=== PATIENT | female | born 1975 | race Caucasian/White ===

== ENCOUNTER → 2016-05-14 | Outpatient (REF) | payer OTHER, SELFPAY | LOC: M LAB REF 20:03 | PROVIDERS: ATTEND Physician Assistant | DX: N39.0 Urinary tract infection, site not specified (principal) ==

== ENCOUNTER 2019-06-09 17:41 | Observation (INO) | payer OTHER ==
[~2019-06-09] VITALS: Ht 165.1 cm; Wt 73.0 kg
[2019-06-09] MEDS ORDERED: LABETALOL HCL 100 MG/20 ML VIAL IV STA ×3 (18:30→22:20)
[2019-06-09] MEDS ORDERED: LABETALOL HCL 100 MG/20 ML VIAL As Ordered ONE (18:31)
[2019-06-09 18:32] LABS: BASO # 0.1 10^3/uL (0.0-0.2); BASO % 0.5 % (0.0-1.0); EOS # 0.1 10^3/uL (0.0-0.5); EOS % 0.6 % (0.0-3.0); LYMPH # 1.8 10^3/uL (1.5-5.0); LYMPH % 14.2 % (24.0-44.0); MEAN CORPUSCULAR HGB CONC 33.3 g/dl (32.0-36.5); MONO # 0.6 10^3/uL (0.0-0.8); MONO % 4.9 % (0.0-5.0); NEUTROPHILS # 10.1 10^3/uL (1.5-8.5); NEUTROPHILS % 79.5 % (36.0-66.0); PLATELET COUNT, AUTOMATED 304 10^3/uL (150-450); RED BLOOD COUNT 5.17 10^6/uL (4.00-5.40); WHITE BLOOD COUNT 12.7 10^3/uL (4.0-10.0)
[2019-06-09 18:43] LABS: INR 1.02; PROTHROMBIN TIME 13.1 SECONDS (11.8-14.0)
[2019-06-09 18:44] LABS: PARTIAL THROMBOPLASTIN TIME 26.4 SECONDS (25.0-38.4)
[2019-06-09 19:03] LABS: HCG, SERUM QUALITATIVE NEGATIVE (NEGATIVE)
[2019-06-09 19:06] LABS: BLOOD UREA NITROGEN 7 MG/DL (7-18); CREATININE FOR GFR 0.89 MG/DL (0.55-1.30); GLUCOSE, FASTING 98 MG/DL (70-100)
[2019-06-09 19:07] LABS: ALT/SGPT 17 U/L (12-78); BILIRUBIN,DIRECT 0.1 MG/DL (0.0-0.2); BILIRUBIN,TOTAL 0.4 MG/DL (0.2-1.0); CALCIUM LEVEL 9.2 MG/DL (8.5-10.1); CARBON DIOXIDE LEVEL 23 MEQ/L (21-32); CHLORIDE LEVEL 107 MEQ/L (98-107); CK-MB VALUE MASS < 1.0 NG/ML (<3.6); CPK CREATINE PHOSPHOKINASE 65 U/L (26-192); FREE T4 1.36 NG/DL (0.76-1.46); GLOMERULAR FILTRATION RATE > 60.0 (>58); LIPASE 109 U/L (73-393); MB/CK RELATIVE INDEX 1.54 (< OR =4); POTASSIUM SERUM 3.5 MEQ/L (3.5-5.1); SODIUM LEVEL 139 MEQ/L (136-145); TOTAL PROTEIN 7.6 GM/DL (6.4-8.2); TROPONIN I < 0.02 NG/ML (< 0.10)
--- NOTE | 2019-06-09 19:50 | REP ---
PA and lateral chest: There are no comparisons. The lung banerjee are clear. The cardiac size is normal. The shanita, mediastinum, and skeletal structures are unremarkable. Impression: Negative PA and lateral chest. Electronically Signed by Scooter Santiago MD 06/09/2019 07:41 P
--- NOTE | 2019-06-09 20:05 | REPVR ---
PROCEDURE INFORMATION: Exam: CT Head Without Contrast Exam date and time: 06/09/2019 7:25 PM Age: 44 years old Clinical indication: Pain; Headache not specified; Additional info: Headache, HTN TECHNIQUE: Imaging protocol: Computed tomography of the head without contrast. Radiation optimization: All CT scans at this facility use at least one of these dose optimization techniques: automated exposure control; mA and/or kV adjustment per patient size (includes targeted exams where dose is matched to clinical indication); or iterative reconstruction. COMPARISON: No relevant prior studies available. FINDINGS: Brain: No intracranial mass, mass effect or midline shift. No acute intracranial hemorrhage. No CT evidence of acute cortical infarct. Ventricles: Ventricles, cisterns, and sulci are normal in size for age. Bones/joints: No calvarial fracture or destructive process. Sinuses: Imaged paranasal sinuses are clear. Mastoid air cells: Mastoid air cells are normally aerated. Orbits: Imaged orbits are unremarkable. Soft tissues: No focal extracranial soft tissue swelling. IMPRESSION: No acute or concerning focal intracranial abnormality. Electronically signed by: Barrett Peck On 06/09/2019 20:05:13 PM
[2019-06-09] MEDS ORDERED: LOSARTAN 50 MG TAB PO ONE (21:00)
[2019-06-09] MEDS ORDERED: MORPHINE 4 MG/ML 1ML VIAL/SYRINGE (J2270) IV PRN (22:30)
[2019-06-09] MEDS ORDERED: MORPHINE 4 MG/ML 1ML VIAL/SYRINGE (J2270) IV ONE (22:30)
[2019-06-09] MEDS: amLODIPine 5 MG TAB PO SCH (23:13)
[2019-06-09 23:50] VITALS: BP 160/94
[2019-06-10 04:00] VITALS: BP 160/92
[2019-06-10] MEDS: ACETAMINOPHEN TAB 650MG DOSE (2X325MG) PO PRN ×3 (05:55→20:51)
[2019-06-10 06:43] LABS: BASO # 0.1 10^3/uL (0.0-0.2); BASO % 0.7 % (0.0-1.0); EOS # 0.1 10^3/uL (0.0-0.5); EOS % 0.7 % (0.0-3.0); HEMATOCRIT 40.3 % (36.0-47.0); HEMOGLOBIN 13.3 g/dl (12.0-15.5); LYMPH # 1.9 10^3/uL (1.5-5.0); LYMPH % 20.6 % (24.0-44.0); MONO # 0.6 10^3/uL (0.0-0.8); MONO % 7.1 % (0.0-5.0); NEUTROPHILS # 6.4 10^3/uL (1.5-8.5); NEUTROPHILS % 70.6 % (36.0-66.0); PLATELET COUNT, AUTOMATED 278 10^3/uL (150-450); RED BLOOD COUNT 4.58 10^6/uL (4.00-5.40)
[2019-06-10 07:02] LABS: HEMOGLOBIN A1c 5.2 %
[2019-06-10 07:03] LABS: AMPHETAMINES LEVEL URINE NEGATIVE (NEGATIVE); BARBITURATES URINE NEGATIVE (NEGATIVE); BENZODIAZEPINES URINE NEGATIVE (NEGATIVE); CANNABINOIDS URINE NEGATIVE (NEGATIVE); COCAINE METABOLITE URINE NEGATIVE (NEGATIVE); METHADONE URINE NEGATIVE (NEGATIVE); OPIATES URINE POSITIVE (NEGATIVE); PHENCYCLIDINE URINE NEGATIVE (NEGATIVE)
[2019-06-10 07:06] LABS: ALBUMIN 3.4 GM/DL (3.2-5.2); ALT/SGPT 18 U/L (12-78); BILIRUBIN,TOTAL 0.4 MG/DL (0.2-1.0); BLOOD UREA NITROGEN 5 MG/DL (7-18); CALCIUM LEVEL 8.5 MG/DL (8.5-10.1); CARBON DIOXIDE LEVEL 27 MEQ/L (21-32); CHLORIDE LEVEL 105 MEQ/L (98-107); CHOLESTEROL RISK RATIO 3.132 (<5); CREATININE FOR GFR 0.74 MG/DL (0.55-1.30); GLOMERULAR FILTRATION RATE > 60.0 (>58); GLUCOSE, FASTING 111 MG/DL (70-100); MAGNESIUM LEVEL 1.9 MG/DL (1.8-2.4); POTASSIUM SERUM 3.3 MEQ/L (3.5-5.1); SODIUM LEVEL 138 MEQ/L (136-145)
[2019-06-10 07:15] LABS: CREATININE, URINE 74.4 MG/DL; MALB URINE SIEMENS 11.3 MG/L; MAU/CREAT RATIO 15.1 MCG/MG (0.0-30.0)
[2019-06-10 08:00] VITALS: BP 146/90
[2019-06-10] MEDS: LOSARTAN 50 MG TAB PO SCH ×2 (08:50→20:51)
[2019-06-10] MEDS: amLODIPine 5 MG TAB PO SCH ×2 (08:51→20:50)
--- NOTE | 2019-06-10 10:41 | HPE ---
DATE OF ADMISSION: 06/09/2019 CHIEF COMPLAINT: Headache. HISTORY OF PRESENT ILLNESS: This is a 44-year-old female who was in her usual state of health until yesterday when she felt the diffuse headache when she went to work at 3 p.m. Patient took two ibuprofen and thought it was migraine, but around 5 p.m. patient did not have any improvement, describes the headache as pounding around the orthodox, but initially started behind the eyes. Patient had similar episode 2 weeks ago. At that time she took some Excedrin Migraine and it went away after a few hours. Last night patient's headache would not go away despite taking Excedrin Migraine, she felt "out of control because of the caffeine component of the Excedrin Migraine". Patient a year ago had episodes of palpitations, usually occurs when she drinks alcohol and she gets occasional dizziness after stopping alcohol, patient has not had anymore episodes of palpitations during this episode yesterday and until today patient did not have any chest pain, pressure, tightness, lightheadedness, dizziness, or shortness of breath. She had no gait instability, upper or lower extremity weakness or paraesthesias. Patient does admit to drinking about four caffeinated beverages throughout the day, two cups of coffee in the morning and iced coffee throughout the day. 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 Patient has not had any recent stressors. She does eat out at times, had [employer] last night and today had some [place] fries which were very salty, she usually does not watch her salt intake, but she does eat at home most of the time with her . FAMILY HISTORY: Hypertension with her father with blood pressure issues at the age of 62. Sister, however, had hypertension diagnosed in her early in her 30s, unknown reason. Patient has never been worked up for pheochromocytoma secondary hypertension. In the past she has had no skin hyperpigmentation or any history of hyperestrinism, pheochromocytoma, or hypertension. The only medications she has had recently in December was oral contraceptive pills. At that time when she was at her racquet maker her blood pressure was 123 and was deemed to be normal. Patient denies any recreational drug use including cocaine, heroin, marijuana. Patient otherwise denies any fever or chills, changes in vision, change in appetite, weight gain, weight loss, sore throat, ear pain, ear discharge, neck pain, chest pain, pressure or tightness, lightheadedness or dizziness, shortness of breath, palpitations, vomiting, abdominal pain, bilateral upper or lower extremity weakness, paraesthesias, changes in memory. She did have a history of depression, but currently not on any medications at this time. Patient does admit to slight nausea when she had a headache, rated the headache as 10 out of 10 when it does come in with Excedrin Migraine usually goes down to about 3 out of 10, currently despite ibuprofen and labetalol in the emergency room (ER) patient's headache is still at 8 out of 10. The ER she presented with systolic pressure of 220/124, she was given two doses of labetalol 10 mg intravenous with subsequent repeat blood pressure of 171/109, still with persistent with diffuse headache, but improved to about [address] of the head showed no acute hemorrhage or focal intracranial abnormality. Chest x-ray has no pulmonary edema. PAST MEDICAL HISTORY: Depression. PAST SURGICAL HISTORY: Breast implants. ALLERGIES: No known drug allergies. SOCIAL HISTORY: Works as a hairdressing. Previously smoked one to two cigarettes as a teenager, not smoking currently. Patient used to drink wine and Vodka, but stopped a year ago due to complaints of palpitations. Lives with her husbands. Recently started on oral contraceptive pills in December. FAMILY HISTORY: Father alive age 62 with hypertension. Mother alive and well. No medical problems aside from arthritis. Sister with hypertension, currently age 38, was diagnosed with hypertension in her 30s, just had a baby, but did not have gestational hypertension or preeclampsia per the patient. REVIEW OF SYSTEMS: Per history of present illness. Twelve point system otherwise negative. PHYSICAL EXAMINATION: Temperature 98.2, pulse 104, respiratory 20, blood pressure 220/124, 97% on room air. GENERALLY: Patient is awake, alert, oriented times three, answering questions appropriately. Face is symmetric. Pupils equal round and reactive to light. Extraocular muscles are intact. No conversational dyspnea. Speaks in full sentences. Anicteric sclera. No jaundice. Tongue is midline. Face is symmetric. Speech is fluent. No dysmetria in finger to nose testing. No pronator drift. NECK: Supple, full range of motion. No cervical lymphadenopathy or thyromegaly. Moist mucous membranes. No pharyngeal erythema or tonsil exudates. No jugular venous distention. LUNGS: Clear to auscultation. Air entry is equal bilaterally. No wheezing, rales, or rhonchi. HEART: S1, S2, sinus tachycardia. Nondisplaced point of maximal impulse. No rubs, gallops. ABDOMEN: Soft, nontender, nondistended, positive bowel sounds. No rebound guarding. No hepatosplenomegaly. No abdominal bruits. EXTREMITIES: No cyanosis or clubbing or pitting edema. SKIN: Warm, dry, pink in color. EKG - Pending. CT of the head - No acute intracranial abnormality. Chest x-ray negative. ASSESSMENT AND PLAN: This is a 44-year-old female with no past medial history aside from prior depression presents to the emergency room with 2 day history of headache that started yesterday into the evening, initially thought to be migraine presented with blood pressure of 220/124. Patient is admitted for observation for the following issues: 1. Hypertensive urgency, patient has been given labetalol, currently started on losartan 50 mg twice a day, and we will check patient's lipid panel, A1c and urine microalbumin to look for end organ damage. Echo has been obtained. Due to uncontrolled nature of her high blood pressure she has also been started on Norvasc. Patient says that she had a prior study of depression, therefore, we would not want her on chronic beta blockade. She currently does not have a primary care physician and will need to be referred out within 1 week for blood pressure check. Patient has been advised regarding her dietary intake of sodium to be restricted to 2 grams daily. She currently has adequate BMI of 25.8 and says that she will try to have a healthy lifestyle. Caffeine intake of four daily has also been discussed and it should be cut down. She likes the taste of coffee, but she was encouraged to take decaffeinated beverages for now. Despite having complaints of palpitations a year ago when she drinks she currently has no complaints of palpitation of near syncope, no diaphoresis to suspect pheochromocytoma. If she has no significant improvement, it is prudent to refer to Dr. Lutz, hypertensive specialist as outpatient. She can be checked for thyroid disease, pheochromocytoma as outpatient. 2. History of depression. Currently on no medications. No suicidal or homicidal tendencies. Normal mood. No changes in sleep habits or appetite. 3. Deep venous thrombosis (DVT) prophylaxis with compression stockings. MTDD
[2019-06-10] MEDS ORDERED: POTASSIUM CHLORIDE 10 MEQ SR TABLET PO ONE (11:00)
[2019-06-10] MEDS ORDERED: SLF 3 ML SYR IV PRN (11:30)
[2019-06-10 12:00] VITALS: BP 160/92
[2019-06-10 13:14] VITALS: BP 148/88
[2019-06-10] MEDS: SLF 3 ML SYR IV SCH ×2 (13:15→20:51)
[2019-06-10 16:00] VITALS: BP 134/90
[2019-06-10 20:00] VITALS: BP 162/94
[2019-06-11] VITALS: BP 162/98
[2019-06-11 04:00] VITALS: BP 160/98
[2019-06-11] MEDS: SLF 3 ML SYR IV SCH (05:10)
[2019-06-11] MEDS: ACETAMINOPHEN TAB 650MG DOSE (2X325MG) PO PRN (06:31)
[2019-06-11 07:29] VITALS: BP 160/120
[2019-06-11] MEDS: LOSARTAN 50 MG TAB PO SCH (08:28)
[2019-06-11 08:29] VITALS: BP 170/110
[2019-06-11] MEDS: amLODIPine 5 MG TAB PO SCH (08:29)
[2019-06-11 08:34] VITALS: BP 170/110
[2019-06-11 10:30] VITALS: BP 140/90
[2019-06-11] MEDS ORDERED: AMLO5TAB6 PO (12:25)
[2019-06-11] MEDS ORDERED: COZA50TA PO (12:25)
--- NOTE | 2019-06-11 15:31 | DS.PDOC ---
Discharge Summary General Date of Admission Jun 09, 2019 at 20:52 Date of Discharge 06/11/19 Discharge Summary PROCEDURES PERFORMED DURING STAY: [None]. ADMITTING DIAGNOSES: 1. hypertensive urgency DISCHARGE DIAGNOSES: 1. hypertensive urgency COMPLICATIONS/CHIEF COMPLAINT: headaches HISTORY OF PRESENT ILLNESS: Please refer to HP for detailed HPI. HOSPITAL COURSE: Patient was admitted and treated for the following conditions: 1. hypertensive urgency - started on losartan 50mg BID, amlodipine. - patients blood pressure improved on PO medication. - 2gm sodium diet, advised to reduce/eliminate caffeine from her diet. - patient also recently started OCP with symptoms worsening soon after, advised her to stop taking and f/u with assistant director of admissions for alternative recommendations. - advised to setup referral for PCP this week and follow up with them regarding her BP medications and any adjustments that may need to be made. - patient verbalizes understanding and is agreeable to same. DISCHARGE MEDICATIONS: Please see below. ALLERGIES: Please see below. PHYSICAL EXAMINATION ON DISCHARGE: VITAL SIGNS: Please see below. GENERAL: AAO x 3, NAD. HEENT: NCAT, anicteric sclera, PERRLA/EOMI NECK: supple, no JVD, no thyromegaly CARDIOVASCULAR EXAMINATION: NS1S2, regular, no murmurs/rubs RESPIRATORY EXAMINATION: CTA b/l, no wheezing, rales, rhonchi. ABDOMINAL EXAMINATION: NT/ND, positive bowel sounds, no masses EXTREMITIES: no cyanosis, clubbing, edema SKIN: warm, no rashes, NEUROLOGICAL EXAMINATION: AAO x 3, no motor/sensory deficits, PSYCHIATRIC EXAMINATION: calm, cooperative, normal affect. LABORATORY DATA: Please see below. PROGNOSIS: good ACTIVITY: [As tolerated]. DIET: low sodium diet DISPOSITION: 01 Home, Self-Care. DISCHARGE INSTRUCTIONS: 1. please f/u with PCP within 2 weeks of discharge. ITEMS TO FOLLOWUP ON ON OUTPATIENT: 1. none DISCHARGE CONDITION: [Stable]. TIME SPENT ON DISCHARGE: Greater than [30] minutes. Vital Signs/I&Os Vital Signs Date Time Temp Pulse Resp B/P (MAP) Pulse Ox O2 Delivery O2 Flow Rate FiO2 06/11/19 10:30 140/90 (107) 06/11/19 08:34 74 06/11/19 07:29 97.5 18 96 Room Air I&O- Last 24 Hours up to 6 AM 06/11/19 06:00 Intake Total 400 ml Output Total 550 ml Balance -150 ml Discharge Medications Scheduled Amlodipine Besylate (Amlodipine Besylate) 5 Mg Tablet, 5 MG PO BID Losartan Potassium (Cozaar) 50 Mg Tablet, 50 MG PO BID Allergies Coded Allergies: No Known Allergies (Unverified , 06/09/19) HENRY PRESCOTT MD Jun 11, 2019 15:31
--- NOTE | 2019-06-11 20:36 | ECGEPIP ---
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
== END 2019-06-11 13:55 | disposition home or self-care (01) ==
LOC: M ED 17:41 → M ED INP 20:52 → ENRESERV 21:22 → M PCU 23:33
PROVIDERS: ADMIT General Practice; ATTEND General Practice
DX: I16.0 Hypertensive urgency (principal); F32.9 Major depressive disorder, single episode, unspecified; Z87.891 Personal history of nicotine dependence; Z82.49 Family history of ischemic heart disease and other diseases of the circulatory system; Z79.3 Long term (current) use of hormonal contraceptives
CPT/HCPCS: 36415; 70450; 71046; 80048; 80053; 80061; 80076; 80307; 82043; 82550; 82553; 83036; 83690; 83735; 84439; 84443; 84703; 85025; 85610; 85730; 93005; 93041; 94760; 96374; 96375; 96376; 99285; J2270

== ENCOUNTER → 2019-06-26 | Outpatient (CLI) | payer OTHER ==
[~2019-06-26] MED LIST: AMLO5TAB6 PO; COZA50TA PO
== END ==
LOC: M CARPUL 08:31
PROVIDERS: ATTEND Physician Assistant Medical
DX: R94.31 Abnormal electrocardiogram [ECG] [EKG] (principal)

== ENCOUNTER → 2019-06-27 | Outpatient (REF) | payer OTHER ==
[2019-07-01 00:11] LABS: CREATININE,RANDOM URINE 58.7 mg/dL (Not Estab.); URINE METANEPHR/CREAT RATIO 0.3 (0.0-1.0)
== END ==
LOC: M SFHCADAM 12:42
PROVIDERS: ATTEND Physician Assistant Medical
DX: R94.31 Abnormal electrocardiogram [ECG] [EKG] (principal)

== ENCOUNTER → 2019-06-27 | Outpatient (REF) | payer OTHER | LOC: M SFHCADAM 12:44 | PROVIDERS: ATTEND Physician Assistant Medical | DX: R94.31 Abnormal electrocardiogram [ECG] [EKG] (principal) ==

== ENCOUNTER → 2021-05-05 | Outpatient (REF) | payer OTHER ==
[~2021-05-05] MED LIST changes: +AMLO1TAB24 PO; -AMLO5TAB6 PO
[2021-05-05 12:40] LABS: BASO # 0.1 10^3/uL (0.0-0.2); BASO % 0.9 % (0.0-1.0); EOS # 0.2 10^3/uL (0.0-0.5); EOS % 3.2 % (0.0-3.0); HEMATOCRIT 42.6 % (36.0-47.0); LYMPH # 1.8 10^3/uL (1.5-5.0); LYMPH % 27.7 % (24.0-44.0); MEAN CORPUSCULAR HEMOGLOBIN 29.2 pg (27.0-33.0); MEAN CORPUSCULAR HGB CONC 32.9 g/dl (32.0-36.5); MEAN CORPUSCULAR VOLUME 88.9 fl (80.0-96.0); MONO # 0.4 10^3/uL (0.0-0.8); MONO % 6.4 % (2.0-8.0); NEUTROPHILS % 61.5 % (36.0-66.0); PLATELET COUNT, AUTOMATED 276 10^3/uL (150-450); RED BLOOD COUNT 4.79 10^6/uL (4.00-5.40); WHITE BLOOD COUNT 6.6 10^3/uL (4.0-10.0)
[2021-05-05 13:12] LABS: ALBUMIN 3.8 GM/DL (3.2-5.2); ALT/SGPT 22 U/L (12-78); BILIRUBIN,TOTAL 0.3 MG/DL (0.2-1.0); BLOOD UREA NITROGEN 11 MG/DL (7-18); CALCIUM LEVEL 9.2 MG/DL (8.5-10.1); CARBON DIOXIDE LEVEL 26 MEQ/L (21-32); CHLORIDE LEVEL 107 MEQ/L (98-107); CHOLESTEROL LEVEL 182 MG/DL (<200); CHOLESTEROL RISK RATIO 2.935 (<5); CREATININE FOR GFR 0.73 MG/DL (0.55-1.30); GLOMERULAR FILTRATION RATE > 60.0 (>58); GLUCOSE, FASTING 95 MG/DL (70-100); HDL CHOLESTEROL 62 MG/DL (>40); LDL CHOLESTEROL 103 MG/DL (<100); NON-HDL-C 120 MG/DL; SODIUM LEVEL 140 MEQ/L (136-145); TOTAL PROTEIN 7.3 GM/DL (6.4-8.2); TRIGLYCERIDES LEVEL 83 MG/DL (<150)
== END ==
LOC: M SFHCADAM 09:36
PROVIDERS: ATTEND Physician Assistant Medical
DX: F41.9 Anxiety disorder, unspecified (principal); I10 Essential (primary) hypertension

== ENCOUNTER → 2021-10-27 | Outpatient (CLI) | payer OTHER | LOC: M WHC 14:30 | PROVIDERS: ATTEND Physician Assistant Medical | DX: Z12.31 Encounter for screening mammogram for malignant neoplasm of breast (principal); R92.8 Other abnormal and inconclusive findings on diagnostic imaging of breast ==

== ENCOUNTER → 2021-11-11 | Outpatient (CLI) | payer OTHER | LOC: M WHC 09:44 | PROVIDERS: ATTEND Physician Assistant Medical | DX: R92.8 Other abnormal and inconclusive findings on diagnostic imaging of breast (principal) ==

== ENCOUNTER → 2023-02-22 | Outpatient (REF) | payer OTHER ==
[~2023-02-22] MED LIST changes: -COZA50TA PO; +LOSA-528 PO
[2023-02-22 13:32] LABS: BASO # 0.1 10^3/uL (0.0-0.2); BASO % 0.8 % (0.0-1.0); EOS # 0.1 10^3/uL (0.0-0.5); HEMATOCRIT 43.4 % (36.0-47.0); HEMOGLOBIN 14.5 g/dl (12.0-15.5); LYMPH # 1.8 10^3/uL (1.5-5.0); LYMPH % 29.9 % (24.0-44.0); MEAN CORPUSCULAR HEMOGLOBIN 29.4 pg (27.0-33.0); MEAN CORPUSCULAR HGB CONC 33.4 g/dl (32.0-36.5); MEAN CORPUSCULAR VOLUME 87.9 fl (80.0-96.0); MONO # 0.4 10^3/uL (0.0-0.8); MONO % 6.9 % (2.0-8.0); NEUTROPHILS # 3.6 10^3/uL (1.5-8.5); NEUTROPHILS % 60.2 % (36.0-66.0); PLATELET COUNT, AUTOMATED 254 10^3/uL (150-450); RED BLOOD COUNT 4.94 10^6/uL (4.00-5.40); WHITE BLOOD COUNT 6.1 10^3/uL (4.0-10.0)
[2023-02-22 13:40] LABS: ALBUMIN 3.8 G/DL (3.2-5.2); ALKALINE PHOSPHATASE 50 U/L (46-116); ALT/SGPT 23 U/L (7.0-40); AST/SGOT 15 U/L (<34); BILIRUBIN,TOTAL 0.4 MG/DL (0.3-1.2); BLOOD UREA NITROGEN 10 MG/DL (9-23); CALCIUM LEVEL 8.9 MG/DL (8.5-10.1); CARBON DIOXIDE LEVEL 25 MMOL/L (20-31); CHLORIDE LEVEL 105 MMOL/L (98-107); CHOLESTEROL LEVEL 199 MG/DL (<200); CHOLESTEROL RISK RATIO 3.12 (<5); GLOMERULAR FILTRATION RATE > 60.0 (>58); GLUCOSE, FASTING 92 MG/DL (60-100); HDL CHOLESTEROL 63.7 MG/DL (>40); LDL CHOLESTEROL 116.7 MG/DL (<100); NON-HDL-C 135.3 MG/DL; SODIUM LEVEL 140 MMOL/L (136-145); TOTAL PROTEIN 6.9 G/DL (5.7-8.2); TRIGLYCERIDES LEVEL 93 MG/DL (<150)
[2023-02-22 13:41] LABS: THYROID STIMULATING HORMONE 1.803 uIU/ML (0.55-4.78)
== END ==
LOC: M SFHCADAM 08:22
PROVIDERS: ATTEND Physician Assistant Medical
DX: I10 Essential (primary) hypertension (principal); F41.9 Anxiety disorder, unspecified; F43.9 Reaction to severe stress, unspecified; Z63.79 Other stressful life events affecting family and household